=== PATIENT | male | born 1980 | race Caucasian/White ===

== ENCOUNTER 2018-06-29 21:33 | Emergency (ER) | payer OTHER ==
[~2018-06-29] VITALS: Ht 180.3 cm; Wt 68.0 kg
[~2018-06-29 21:33] MED LIST: IBUPROFEN800 MG PO; NORFLEX100MG PO
== END 2018-06-29 22:39 | disposition home or self-care (01) ==
LOC: ER 21:33
DX: T78.02XA Anaphylactic reaction due to shellfish (crustaceans), initial encounter (principal); H57.89 Other specified disorders of eye and adnexa; X58.XXXA Exposure to other specified factors, initial encounter